=== PATIENT | female | born 1985 | race American Indian/Alaskan Native ===

== ENCOUNTER 2017-11-03 10:59 | Emergency (ER) | payer SELFPAY ==
[2017-11-03 11:14] VITALS: BP 120/69
[2017-11-03 15:39] LABS: Basophils % (Auto) 0.5 % (0.0-1.8); Eosinophils % (Auto) 2.4 % (0.0-4.3); Hematocrit 38.4 % (30.3-42.9); Hemoglobin 12.6 gm/dl (10.1-14.3); Lymphocytes % (Auto) 23.4 % (13.4-35.0); Mean Corpuscular HGB Conc 33 % (30-34); Mean Corpuscular Hemoglobin 30 pg (28-32); Mean Corpuscular Volume 91 fl (79-97); Monocytes # (Auto) 0.5 K/mm3 (0.0-0.8); Monocytes % (Auto) 6.3 % (0.0-7.3); Platelet Count 311 K/mm3 (140-440); Red Blood Count 4.23 M/mm3 (3.65-5.03); Red Cell Distribution Width 13.4 % (13.2-15.2)
[2017-11-03 15:40] LABS: Eosinophils # (Auto) 0.2 K/mm3 (0.0-0.4)
[2017-11-03 15:57] LABS: BUN/Creatinine Ratio 15; Blood Urea Nitrogen 9 mg/dL (7-17); Calcium 8.7 mg/dL (8.4-10.2); Hemolysis Index 12
[2017-11-03] MEDS ORDERED: TORADOL IV ONE (18:23)
[2017-11-03] MEDS ORDERED: ANTIVERT PO ONE (18:23)
[2017-11-03] MEDS ORDERED: REGLAN IV ONE (18:23)
[2017-11-03] MEDS ORDERED: BENADRYL IV ONE (18:23)
[2017-11-03] MEDS ORDERED: NACL 0.9% 500 ML 500 ML IV ONE (18:24)
--- NOTE | 2017-11-03 19:06 | Cat Scan Report ---
FINAL REPORT EXAM: CT HEAD/BRAIN WO CON HISTORY: dizziness, left deleon TECHNIQUE: CT examination of the head without IV contrast PRIORS: None. FINDINGS: Slight mucosal thickening left ethmoid sinus. No acute air-fluid level visualized in the included air-filled sinuses. Bone windows demonstrate no acute fracture. The brain is without mass, mass effect, hemorrhage, or acute infarct. There is no extra-axial intracranial bleed, brain bleed, or midline shift. The ventricles and sulci are age-appropriate. IMPRESSION: No acute CVA, intracranial bleed, or brain mass Slight mucosal thickening left ethmoid sinus without CT evidence of acute fluid level
[2017-11-03] MEDS ORDERED: COLACE OT ONE (19:30)
--- NOTE | 2017-11-03 19:40 | Emergency Department Report ---
ED Dizziness HPI - General Chief Complaint: Chest Pain Stated Complaint: DIZZINESS/WEAKNESS Time Seen by Provider: 11/03/17 18:11 Source: patient Mode of arrival: Ambulatory Limitations: No Limitations - History of Present Illness Initial Comments: 32-year-old female in no snake and past medical history presents to the hospital complaints of dizziness, chest pain, and headache. Patient states when getting out of bed this morning she felt dizzy and off balance causing her to fall back onto the bed. At that time patient also had a gripping pain in the center her chest with some shortness of breath that lasted a couple hours. Chest pain has since resolved and no shortness of breath reported at this time. Patient had another episode of dizziness causing her to feel like she was about to lose her balance. She states that it is a spinning sensation but there is some lightheadedness associated with it as well. She denies nausea, vomiting, blurred vision, diarrhea, melena, hematochezia, focal weakness or numbness. Patient has had a right sided frontal headache since symptoms onset this a.m. Headache is rated 10/10 in intensity. She suffers from similar headaches for the past 15 weeks with several episodes a week and migraines have been suggested as a diagnosis in the past. She denies history of PE/DVT, control use, calf tenderness/edema, but has recently traveled to [place] via 3- 4 hour bus about 3 weeks ago - Related Data Home Medications Medication Instructions Recorded Confirmed Last Taken Garlic 250 mg PO DAILY 11/03/17 11/03/17 Unknown Previous Rx's Medication Instructions Recorded Last Taken Type Carbamide Peroxide 6.5% [Ear Wax 5 - 10 drops OS BID PRN #5 day 11/03/17 Unknown Rx Drops] Ibuprofen [Motrin] 800 mg PO Q8HR PRN #30 tablet 11/03/17 Unknown Rx Meclizine [Antivert] 25 mg PO TID PRN #30 tablet 11/03/17 Unknown Rx Allergies Allergy/AdvReac Type Severity Reaction Status Date / Time Penicillins Allergy Swelling Verified 11/03/17 11:10 ED Review of Systems ROS: Stated complaint: DIZZINESS/WEAKNESS Other details as noted in HPI Comment: All other systems reviewed and negative Other: Constitutional: No fevers chills Eyes: No eye pain visual changes ENT: No ear pain or throat pain Neck: Denies pain Respiratory: Denies cough wheezing Cardiovascular: As per HPI GI: Denies abdominal pain, nausea, vomiting, diarrhea : Denies dysuria Musculoskeletal: Denies back pain, joint swelling Skin: Denies rash, lesions, erythema Neurologic: As per HPI Psychiatric: Denies suicidal ideation, hallucinations ED Past Medical Hx - Past Medical History Previous Medical History?: No - Surgical History Past Surgical History?: No - Social History Smoking Status: Current Every Day Smoker - Medications Home Medications: Home Medications Medication Instructions Recorded Confirmed Last Taken Type Carbamide Peroxide 6.5% [Ear Wax 5 - 10 drops OS BID PRN #5 day 11/03/17 Unknown Rx Drops] Garlic 250 mg PO DAILY 11/03/17 11/03/17 Unknown History Ibuprofen [Motrin] 800 mg PO Q8HR PRN #30 tablet 11/03/17 Unknown Rx Meclizine [Antivert] 25 mg PO TID PRN #30 tablet 11/03/17 Unknown Rx ED Physical Exam - General Limitations: No Limitations - Other Other exam information: General: No limitations, patient is alert in no acute distress Head exam: Atraumatic, normocephalic Eyes exam: Normal appearance ENT: Moist mucous membrane, normal oropharynx, left ear cerumen impaction. Right TM normal Neck exam: Normal inspection, full range of motion, no meningismus nontender Respiratory exam: Clear to auscultation bilateral, no wheezes, rales, crackles Cardiovascular: Normal rate and rhythm, normal heart sounds, chest wall nontender Abdomen: Soft, nondistended, and nontender, with normal bowel sounds, no rebound, or guarding Extremity: Full range of motion normal inspection no deformity, no calf tenderness or edema Back: Normal Inspection, full range of motion, no tenderness Neurologic: Alert, oriented x3, cranial nerves intact, no motor or sensory deficit, [id number] function intact Psychiatric: normal affect, normal mood Skin: Warm, dry, intact ED Course Vital Signs 11/03/17 11/03/17 11:11 20:27 Temperature 99.3 F Pulse Rate 98 H Respiratory 16 18 Rate Blood Pressure 120/69 O2 Sat by Pulse 98 Oximetry ED Medical Decision Making - Lab Data Result diagrams: 11/03/17 11:14 11/03/17 11:14 Lab Results 11/03/17 11/03/17 11/03/17 Range/Units 11:14 11:14 11:14 WBC 8.7 (4.5-11.0) K/mm3 RBC 4.23 (3.65-5.03) M/mm3 Hgb 12.6 (10.1-14.3) gm/dl Hct 38.4 (30.3-42.9) % MCV 91 (79-97) fl MCH 30 (28-32) pg MCHC 33 (30-34) % RDW 13.4 (13.2-15.2) % Plt Count 311 (140-440) K/mm3 Lymph % (Auto) 23.4 (13.4-35.0) % [place] % (Auto) 6.3 (0.0-7.3) % Eos % (Auto) 2.4 (0.0-4.3) % Baso % (Auto) 0.5 (0.0-1.8) % Lymph # 2.0 (1.2-5.4) K/mm3 [place] # 0.5 (0.0-0.8) K/mm3 Eos # 0.2 (0.0-0.4) K/mm3 Baso # 0.0 (0.0-0.1) K/mm3 Seg Neutrophils % 67.4 (40.0-70.0) % Seg Neutrophils # 5.8 (1.8-7.7) K/mm3 D-Dimer (0-234) ng/mlDDU Sodium 140 (137-145) mmol/L Potassium 3.8 (3.6-5.0) mmol/L Chloride 99.5 (98-107) mmol/L Carbon Dioxide 25 (22-30) mmol/L Anion Gap 19 mmol/L BUN 9 (7-17) mg/dL Creatinine 0.6 L (0.7-1.2) mg/dL Estimated GFR > 60 ml/min BUN/Creatinine Ratio 15 % Glucose 94 (65-100) mg/dL Calcium 8.7 (8.4-10.2) mg/dL Troponin T < 0.010 (0.00-0.029) ng/mL HCG, Qual Negative (Negative) 11/03/17 11/03/17 11/03/17 Range/Units 15:57 19:12 19:12 WBC (4.5-11.0) K/mm3 RBC (3.65-5.03) M/mm3 Hgb (10.1-14.3) gm/dl Hct (30.3-42.9) % MCV (79-97) fl MCH (28-32) pg MCHC (30-34) % RDW (13.2-15.2) % Plt Count (140-440) K/mm3 Lymph % (Auto) (13.4-35.0) % [place] % (Auto) (0.0-7.3) % Eos % (Auto) (0.0-4.3) % Baso % (Auto) (0.0-1.8) % Lymph # (1.2-5.4) K/mm3 [place] # (0.0-0.8) K/mm3 Eos # (0.0-0.4) K/mm3 Baso # (0.0-0.1) K/mm3 Seg Neutrophils % (40.0-70.0) % Seg Neutrophils # (1.8-7.7) K/mm3 D-Dimer < 135.00 (0-234) ng/mlDDU Sodium (137-145) mmol/L Potassium (3.6-5.0) mmol/L Chloride (98-107) mmol/L Carbon Dioxide (22-30) mmol/L Anion Gap mmol/L BUN (7-17) mg/dL Creatinine (0.7-1.2) mg/dL Estimated GFR ml/min BUN/Creatinine Ratio % Glucose (65-100) mg/dL Calcium (8.4-10.2) mg/dL Troponin T < 0.010 < 0.010 (0.00-0.029) ng/mL HCG, Qual (Negative) - EKG Data -: EKG Interpreted by Ar EKG shows normal: sinus rhythm (89), axis (qrs 85), QRS complexes (103), ST-T waves (no stemi/t inv) Rate: normal - EKG Data When compared to previous EKG there are: previous EKG unavailable - Radiology Data Radiology results: report reviewed ct head: NA, slight mucosal thickening of left ethmoid sinus without ct evidence of acute fluid level XR CHEST: NAF - Medical Decision Making Patient has chronic intermittent right-sided headache neglect secondary to migraines. Positive improvement or Reglan, Benadryl, and Toradol in the ED. Patient also received meclizine. No vertigo or pain reported. She'll be discharged with outpatient follow-up and symptomatic treatment. - Differential Diagnosis vertigo, anemia, intracranial mass, CVA, orthostasis, dehydration Critical Care Time: No Critical care attestation.: If time is entered above; I have spent that time in minutes in the direct care of this critically ill patient, excluding procedure time. ED Disposition Clinical Impression: Unilateral headache, Dizziness Disposition: - TO HOME OR SELFCARE Is pt being admited?: No Does the pt Need Aspirin: No Condition: Stable Instructions: Migraine Headache (ED), Vertigo (ED) Additional Instructions: Take the medication as prescribed. Follow-up with a primary care doctor says clinic and neurologist for further treatment. Return if symptoms worsen as indicated by your Discharge instructions Prescriptions: Carbamide Peroxide 6.5% [Ear Wax Drops] 5 - 10 drops OS BID PRN #5 day PRN Reason: Ear Wax Ibuprofen [Motrin] 800 mg PO Q8HR PRN #30 tablet PRN Reason: Pain Meclizine [Antivert] 25 mg PO TID PRN #30 tablet PRN Reason: Vertigo Referrals: [facility] [Provider Group] - 3-5 Days RASHI HERRERA MD [Staff Physician] - 3-5 Days (Neurologist) Time of Disposition: 22:14
--- NOTE | 2017-11-03 21:50 | XRay Report ---
FINAL REPORT EXAM: XR CHEST ROUTINE 2V HISTORY: cp, sob TECHNIQUE: Two views of the chest were performed Comparison: None FINDINGS: Heart size is normal. Lungs are clear and well expanded without focal infiltrate or consolidation. There is no effusion. IMPRESSION: No acute cardiopulmonary disease.
== END 2017-11-03 22:41 | disposition home or self-care (01) ==
LOC: ED 10:59
DX: R51 Headache (principal); R42 Dizziness and giddiness; F17.200 Nicotine dependence, unspecified, uncomplicated; Z88.0 Allergy status to penicillin
CPT/HCPCS: 36415; 70450; 71046; 80048; 82962; 84484; 84703; 85025; 85379; 93005; 93010; 96374; 96375; 99285; J1200; J1885; J2765; J7040